=== PATIENT | female | born 1960 | race Caucasian/White ===

== ENCOUNTER 2023-10-11 08:39 | Day surgery (SDC) | payer OTHER ==
[2023-10-11] MEDS ORDERED: Propofol 200 MG/20 ML SDV ONE (09:28)
[2023-10-11] MEDS ORDERED: fentaNYL 50 MCG/ML SDV ONE (09:28)
[2023-10-11] MEDS ORDERED: Midazolam 1 MG/ML 2 ML SDV ONE (09:28)
[2023-10-11] MEDS: Lactated Ringers 1,000 ML IV SCH (09:48)
== END 2023-10-11 11:31 | disposition home or self-care (01) ==
LOC: JP.SDS 08:39
PROVIDERS: ATTEND Family Medicine
DX: Z12.11 Encounter for screening for malignant neoplasm of colon (principal); D12.0 Benign neoplasm of cecum; D12.8 Benign neoplasm of rectum; R73.03 Prediabetes; K21.9 Gastro-esophageal reflux disease without esophagitis; Z86.010 Personal history of colon polyps; Z88.0 Allergy status to penicillin
CPT/HCPCS: 45380; 88305; J2250; J2704; J3010; J7120